=== PATIENT | female | born 1995 | race Caucasian/White ===

== ENCOUNTER → 2019-05-13 | Outpatient (CLI) | payer MEDICAID ==
[2019-05-14 15:53] LABS: FREE T4 (FREE THYROXINE) 0.78 NG/DL (0.70-1.48)
== END ==
LOC: LAB FS 15:17
PROVIDERS: ATTEND Family Medicine
DX: Z34.80 Encounter for supervision of other normal pregnancy, unspecified trimester (principal); R53.82 Chronic fatigue, unspecified
CPT/HCPCS: 36415; 82105; 82677; 84439; 84443; 84702; 86336

== ENCOUNTER → 2019-07-15 | Outpatient (CLI) | payer MEDICAID ==
[2019-07-15 10:37] LABS: WHITE BLOOD COUNT 9.8 10^3/uL (4.3-11.0)
[2019-07-15 10:38] LABS: BASOPHILS # (AUTO) 0.1 10^3/uL (0.0-0.1); BASOPHILS % (AUTO) 1 % (0-10); EOSINOPHILS # (AUTO) 0.2 10^3/uL (0.0-0.3); EOSINOPHILS % (AUTO) 2 % (0-10); HEMATOCRIT 30 % (35-52); HEMOGLOBIN 10.5 G/DL (11.5-16.0); LYMPHOCYTES # (AUTO) 1.4 X 10^3 (1.0-4.0); LYMPHOCYTES % (AUTO) 14 % (12-44); MEAN CORPUSCULAR HEMOGLOBIN 30 PG (25-34); MEAN CORPUSCULAR HGB CONC 35 G/DL (32-36); MEAN CORPUSCULAR VOLUME 86 FL (80-99); MEAN PLATELET VOLUME 12.6 FL (7.4-10.4); MONOCYTES # (AUTO) 0.5 X 10^3 (0.0-1.0); MONOCYTES % (AUTO) 5 % (0-12); NEUTROPHILS # (AUTO) 7.5 X 10^3 (1.8-7.8); NEUTROPHILS % (AUTO) 77 % (42-75); PLATELET COUNT 144 10^3/uL (130-400); RED CELL DISTRIBUTION WIDTH 13.5 % (10.0-14.5)
== END ==
LOC: LAB FS 09:39
PROVIDERS: ATTEND Family Medicine
DX: Z34.80 Encounter for supervision of other normal pregnancy, unspecified trimester (principal)
CPT/HCPCS: 36415; 82950; 85025; 86780

== ENCOUNTER → 2019-09-16 | Outpatient (CLI) | payer MEDICAID | LOC: LABNPT 15:40 | PROVIDERS: ATTEND Family Medicine | DX: Z34.83 Encounter for supervision of other normal pregnancy, third trimester (principal); Z3A.00 Weeks of gestation of pregnancy not specified | CPT/HCPCS: 87081 ==

== ENCOUNTER 2019-10-13 20:00 | Inpatient (IN) | payer MEDICAID ==
[~2019-10-13] VITALS: Ht 167 cm; Wt 118.4 kg
[2019-10-13] MEDS ORDERED: FAMOTIDINE 20MG/2ML IV (PEPCID) ONE (21:01)
[2019-10-13] MEDS ORDERED: METOCLOPRAMIDE INJ 10 MG/2 ML (REGLAN) ONE (21:01)
[2019-10-13] MEDS ORDERED: LACTATED RINGERS 1,000 ML IV ONE (21:01)
[2019-10-13] MEDS ORDERED: CITRIC ACID/SOB CIT (BICITRA) 30 ML UDC ONE (21:01)
[2019-10-13] MEDS ORDERED: ceFAZolin 2 GM IV Premixed 0 ML ONE (21:05)
[2019-10-13] MEDS ORDERED: D5 LR IV SOLUTION 1,000 ML IV ONE (21:18)
[2019-10-13 21:30] VITALS: BP 122/72
[2019-10-13] MEDS ORDERED: LACTATED RINGERS 1,000 ML IV SCH (21:30)
[2019-10-13] MEDS ORDERED: MISOPROSTOL 100 MCG (CYTOTEC) TAB PO ONE (21:30)
--- OUTSIDE RECORDS SUMMARY | 2019-10-13 21:30 | XMS REPORT | Continuity of Care Document ---
Author Organization Unknown Address Unknown Phone Unavailable Allergies Active Description Code Type Severity Reaction Onset Reported/Identified Relationship to Patient Clinical Status Yes No Known Drug Allergies [id number] Drug Allergy Unknown N/A 10/13/2019 Medications There is no data. Problems Date Dx Coded Attending Type Code Diagnosis Diagnosed By 07/16/2019 LUCY MAGAÑA MD, Ot Z34.80 ENCOUNTER FOR SUPRVSN OF NORMAL PREGNANC 08/05/2019 LUCY MAGAÑA MD Ot R53.82 CHRONIC FATIGUE, UNSPECIFIED 08/05/2019 LUCY MAGAÑA MD Ot Z34.80 ENCOUNTER FOR SUPRVSN OF NORMAL PREGNANC 08/05/2019 LUCY MAGAÑA MD, Ot R53.82 CHRONIC FATIGUE, UNSPECIFIED 08/05/2019 LUCY MAGAÑA MD Ot Z34.80 ENCOUNTER FOR SUPRVSN OF NORMAL PREGNANC 08/05/2019 LUCY MAGAÑA MD Ot Z34.80 ENCOUNTER FOR SUPRVSN OF NORMAL PREGNANC 08/19/2019 LUCY MAGAÑA MD Ot R53.82 CHRONIC FATIGUE, UNSPECIFIED 08/19/2019 LUCY MAGAÑA MD Ot Z34.80 ENCOUNTER FOR SUPRVSN OF NORMAL PREGNANC 08/19/2019 LUCY MAGAÑA MD Ot Z34.80 ENCOUNTER FOR SUPRVSN OF NORMAL PREGNANC 09/18/2019 LUCY MAGAÑA MD Ot Z34.83 ENCOUNTER FOR SUPRVSN OF NORMAL PREGNANC 09/18/2019 LUCY MAGAÑA MD Ot Z3A.00 WEEKS OF GESTATION OF NOT SPEC 09/24/2019 LUCY MAGAÑA MD Ot Z34.83 ENCOUNTER FOR SUPRVSN OF NORMAL PREGNANC 09/24/2019 LUCY MAGAÑA MD, Ot Z3A.00 WEEKS OF GESTATION OF NOT SPEC Procedures There is no data. Results Test Result Range HIV ANTIGEN/ANTIBODY - 03/11/19 14:42 HIV AG/AB, 4TH GEN NON-REACTIVE NON-TATIANA CTIVE CBC - 03/11/19 14:42 WHITE BLOOD CELL COUNT 7.9 Thousand/uL 3 .8-10.8 RED BLOOD CELL COUNT 4.57 Million/uL 3.8 0-5.10 HEMOGLOBIN 13.8 g/dL 11.7-15.5 HEMATOCRIT 39.5 % 35.0-45.0 MCV 86.4 fL 80.0-100.0 MCH 30.2 pg 27.0-33.0 MCHC 34.9 g/dL 32.0-36.0 RDW 13.0 % 11.0-15.0 PLATELET COUNT 215 Thousand/uL 140-400 MPV 12.7 fL 7.5-12.5 ABSOLUTE NEUTROPHILS 5570 cells/uL 1500- 7800 ABSOLUTE LYMPHOCYTES 1596 cells/uL 850-3 900 ABSOLUTE MONOCYTES 435 cells/uL 200-950 ABSOLUTE EOSINOPHILS 237 cells/uL 15-500 ABSOLUTE BASOPHILS 63 cells/uL 0-200 NEUTROPHILS 70.5 % NRG LYMPHOCYTES 20.2 % NRG MONOCYTES 5.5 % NRG EOSINOPHILS 3.0 % NRG BASOPHILS 0.8 % NRG SYPHILIS (RPR W/ REFLEX CONFIRMATION) - 03/11/19 14:42 RPR (DX) W/REFL TITER AND CONFIRMATORY TESTING NON-REACTIVE NON-REACTIVE HEP B SURFACE ANTIGEN - 03/11/19 14:42 HEPATITIS B SURFACE ANTIGEN NON-REACTIVE NON-REACTIVE RUBELLA IMMUNE STATUS - 03/11/19 14:42 RUBELLA ANTIBODY (IGG) 1.84 index NRG GC/CHLAMYDIA (SWAB OR URINE)-RAPID - 13:36 CHLAMYDIA TRACHOMATIS RNA, TMA NOT DETECTED NOT DETECTED NEISSERIA GONORRHOEAE RNA, TMA NOT DETECTED NOT DETECTED COMMENT NRG SUREPATH PAP RFX HPV mRNA E6/E7 - 13:36 CLINICAL INFORMATION: NRG LMP: NRG PREV. PAP: NRG PREV. BX: NRG SOURCE: Cervix NRG STATEMENT OF ADEQUACY: NRG INTERPRETATION/RESULT: NRG NUCLEAR MEDICINE OFFICER: NRG COMMENT NRG Streptococcus agalactiae detection by or ganism specific culture - 09/16/19 13:00 QUANTITY OF GROWTH . NRG Streptococcus agalactiae detection by organism specifi c culture [id number] NRG Encounters ACCT No. Visit Date/Time Discharge Status Pt. Type Provider Facility Loc./Unit Complaint [id number] 04/30/2019 11:00:00 04/30/2019 23:59: 59 CLS Outpatient LUCY MAGAÑA [facility] [id number] 04/07/2019 13:00:00 Document Registration [id number] 03/11/2019 13:00:00 Document Registration [id number] 09/16/2019 15:40:00 23:59:59 CLS Outpatient LUCY MAGAÑA MD [facility] LABNPT [id number] 07/15/2019 09:39:00 23:59:59 CLS Outpatient LUCY MAGAÑA MD [facility] LAB FS SUPERVISION OF OTHER NO RMAL [id number] 05/13/2019 15:17:00 23:59:59 CLS Outpatient LUCY MAGAÑA MD [facility] LAB FS R53.82 Z34.80 [id number] 10/13/2019 20:37:[address] Inpatient LUCY MAGAÑA MD [facility] LDRP INDUCTION
[2019-10-13] MEDS: D5 LR IV SOLUTION 1,000 ML IV SCH (21:34)
[2019-10-13 21:40] LABS: BASOPHILS % (AUTO) 0 % (0-10); EOSINOPHILS # (AUTO) 0.2 10^3/uL (0.0-0.3); EOSINOPHILS % (AUTO) 2 % (0-10); HEMATOCRIT 33 % (35-52); HEMOGLOBIN 11.8 G/DL (11.5-16.0); LYMPHOCYTES # (AUTO) 1.4 X 10^3 (1.0-4.0); LYMPHOCYTES % (AUTO) 11 % (12-44); MEAN CORPUSCULAR HEMOGLOBIN 31 PG (25-34); MEAN CORPUSCULAR HGB CONC 36 G/DL (32-36); MEAN CORPUSCULAR VOLUME 86 FL (80-99); MONOCYTES # (AUTO) 0.7 X 10^3 (0.0-1.0); MONOCYTES % (AUTO) 6 % (0-12); NEUTROPHILS # (AUTO) 9.6 X 10^3 (1.8-7.8); NEUTROPHILS % (AUTO) 80 % (42-75); PLATELET COUNT 146 10^3/uL (130-400); RED CELL DISTRIBUTION WIDTH 13.9 % (10.0-14.5)
[2019-10-13] MEDS: MISOPROSTOL 100 MCG (CYTOTEC) TAB PV SCH (22:24)
[2019-10-13 22:30] VITALS: BP 118/67
[2019-10-13 23:00] VITALS: BP 105/58
[2019-10-13 23:30] VITALS: BP 120/66
[2019-10-13 23:39] VITALS: BP 122/72
[2019-10-14] VITALS (69 sets, daily range): BP systolic 89–157; BP diastolic 48–80
[2019-10-14] MEDS ORDERED: MISOPROSTOL 100 MCG (CYTOTEC) TAB PO SCH (01:30)
[2019-10-14] MEDS: MISOPROSTOL 100 MCG (CYTOTEC) TAB PV SCH ×2 (02:34→14:49)
[2019-10-14] MEDS: D5 LR IV SOLUTION 1,000 ML IV SCH ×2 (05:46→13:04)
[2019-10-14] MEDS ORDERED: fentaNYL INJECTION 100 MCG/2 ML AMP IVP PRN ×2 (06:00→11:45)
[2019-10-14] MEDS ORDERED: OXYTOCIN PRE-MIX DRIP 500 ML IV ONE (06:22)
[2019-10-14] MEDS ORDERED: OXYTOCIN PRE-MIX DRIP 500 ML IV SCH ×2 (06:26→17:30)
[2019-10-14] MEDS ORDERED: PREN-8 PO (06:42)
--- NOTE | 2019-10-14 11:06 | NUR ---
Returned text to Addendum: 10/14/19 at 1108 by JADEN GEORGE RN Dr Jameson. Pt rates pain 6. Breathing and moving frequently with contractions. Difficult to monitor due to pt's size and frequent movement.
[2019-10-14] MEDS ORDERED: fentaNYL 2 mcg/ml BUPIVA 0.125 100 ML ONE (13:17)
[2019-10-14] MEDS ORDERED: fentaNYL INJECTION 100 MCG/2 ML AMP ONE (13:36)
[2019-10-14] MEDS ORDERED: BUPIVACAINE 0.25% 30 ML (SENSORCAINE) VIAL ONE (13:36)
[2019-10-14] MEDS ORDERED: fentaNYL 2 mcg/ml BUPIVA 0.125 100 ML IV SCH (14:06)
[2019-10-14] MEDS ORDERED: LACTATED RINGERS 1,000 ML IV ONE (14:06)
[2019-10-14] MEDS ORDERED: diphenhydrAMINE 50 MG/ML INJ (BENADRYL) IV PRN (14:15)
[2019-10-14] MEDS ORDERED: EPIDURAL (fentaNYL 2 MCG/ML BUPIVA 0.125%)100 ML BAG EPI SCH (14:15)
[2019-10-14] MEDS ORDERED: NALOXONE 0.4 MG/ML 1 ML (NARCAN) VIAL IV PRN (14:15)
[2019-10-14] MEDS ORDERED: ONDANSETRON 4 MG/2 ML (SDV) Z0FRAN IV PRN (14:15)
[2019-10-14] MEDS ORDERED: CATHETER FLUSH 10 ML SYR IV PRN (14:15)
--- NOTE | 2019-10-14 17:18 | NUR ---
Spontaneous vaginal delivery of placenta with cord attached. fundal massage per dr delgadillo with minimal bleeding noted. perineum examined per dr delgadillo, no repairs needed. plan of care reviewed with pt regarding recovery period 1725 epidural infusion turned off at this time. pt assisted to sf position. 1726 ffu/0 with lt-mod rubra noted, no clots expressed. 1730 epidural catheter dc'd with tip intact
--- NOTE | 2019-10-14 17:26 | NUR ---
VSS. ffu/0 with lt-mod rubra noted, no clots expressed. 1747 vss ffu/0 with mod rubra, 2 small 1cm clots expressed. vss 1802 vss . ffu/0 with lt-mod rubra noted, no clots expressed. pericare, pad changed and underwear on. Gown changed.
--- NOTE | 2019-10-14 17:27 | History & Physical-OB ---
OB - Chief Complaint & HPI Date/Time Date of Admission: Date of Admission: Oct 13, 2019 at 20:37 Date seen by a Provider: Oct 14, 2019 Time Seen by a Provider: 17:00 Chief Complaint/History OB-Reason for Admission/Chief: Induction of Labor Hx : 2 Hx Para: 1 Gestational Age in Weeks: 40 Gestational Age in Days: 0 Indication for induction: post dates Admission Nurse Assessment Rev: Yes Allergies and Home Medications Allergies Coded Allergies: No Known Drug Allergies (Unverified , 10/13/19) Patient Home Medication List Home Medication List Reviewed: Yes OB - History Hx of Present Care: Yes Ultrasounds: Normal mid trimester US Obstetrical Complications: None Medical Complications: None Delivery History Adverse Rxn to Tranfusion: No Patient Past Medical History previously healthy Social History/Family History Recent Infectious Disease Expo: No Alcohol Use: Denies Use Recreational Drug Use: No OB - Admission Exam Physical Exam Vitals: Vital Signs 10/14/19 10/14/19 10/14/19 15:45 16:15 16:30 Temp 36.4 Pulse 70 Resp 18 B/P (MAP) 111/58 (75) Pulse Ox 98 O2 Delivery Room Air HEENT: NCAT Heart: Rhythm Normal Lungs: Clear Abdomen: Gravid Extremities: Normal Reflexes: Normal Cervical Dilatation: 10cm Effacement: 100% Station: +1 Membranes: Ruptured Amniotic Fluid: Clear Heart Rate: 130's Accelerations: Accelerations Present Decelerations: No Decelerations Short Term Variability: Present Loan Administrator Variability: Average (6-25) Contractions on Admission: None Labs Laboratory Tests Test 10/13/19 21:25 Range/Units White Blood Count 12.0 H 4.3-11.0 10^3/uL Red Blood Count 3.87 L 4.35-5.85 10^6/uL Hemoglobin 11.8 11.5-16.0 G/DL Hematocrit 33 L 35-52 % Mean Corpuscular Volume 86 80-99 FL Mean Corpuscular Hemoglobin 31 25-34 PG Mean Corpuscular Hemoglobin Concent 36 32-36 G/DL Red Cell Distribution Width 13.9 10.0-14.5 % Platelet Count 146 130-400 10^3/uL Mean Platelet Volume 7.4-10.4 FL Neutrophils (%) (Auto) 80 H 42-75 % Lymphocytes (%) (Auto) 11 L 12-44 % Monocytes (%) (Auto) 6 0-12 % Eosinophils (%) (Auto) 2 0-10 % Basophils (%) (Auto) 0 0-10 % Neutrophils # (Auto) 9.6 H 1.8-7.8 X 10^3 Lymphocytes # (Auto) 1.4 1.0-4.0 X 10^3 Monocytes # (Auto) 0.7 0.0-1.0 X 10^3 Eosinophils # (Auto) 0.2 0.0-0.3 10^3/uL Basophils # (Auto) 0.0 0.0-0.1 10^3/uL OB - Assessment/Plan/Diagnosis Assessment Assessment: induction of labor Admission Dx Induction of labor at 40 weeks. Admission Status: Inpatient Order (span 2 midnights) Reason for Inpatient Admission: Induction of labor. Plan Induction Method: per Pitocin Protocol Other Plan Cytotec last night times 2 vaginally. Pitocin today with AROM. Will push. Comfortable with epidural. GBS negative. LUCY MAGAÑA MD Oct 14, 2019 17:27
[2019-10-14] MEDS ORDERED: MEASLES,MUMPS,RUBELLA 1 EA INJ SQ ONE (17:30)
[2019-10-14] MEDS ORDERED: TETANUS,DIPTH,PERTUSS P/F (BOOSTRIX) 0.5 ML VIAL IM ONE (17:30)
[2019-10-14] MEDS ORDERED: BENZOCAINE/MENTHOL (DERMOPLAST) 60 ML CAN TP PRN (17:30)
[2019-10-14] MEDS ORDERED: WITCH HAZEL(TUCKS) 40 EA JAR TOP PRN (17:30)
--- NOTE | 2019-10-14 17:30 | OB Labor & Delivery Record ---
Vag Delivery Note Vag Delivery Note Date of Delivery: 10/14/19 Preoperative Diagnosis: Marcia Torrez is a (24 /Para 2/1 , Gestational Age (40 wks)with [0 days] Postoperative Diagnosis: Same Surgeon: LUCY MAGAÑA [employer]: [none] Anesthesia: [epidural] Delivery Type: [] Findings: [] Viable [female] , apgars [7/9], weight [8 pounds 0 ounces] Lacerations: Intact placenta with 3 vessel cord. Loose nuchal cord times one with true knot loose. Estimated Blood Loss: [200] ml Complications: None Condition: Stable Description of Procedure: The patient is a 24 year old female who presented [for induction]. She was admitted and informed consent was obtained. Her labor course was remarkable for [nothing] She progressed to complete dilatation and began to push. She was then set up for delivery. The infant's head was delivered atraumatically in the [OA] position. The shoulders and remainder of the 's body were then delivered without difficulty. Upon delivery, the head was held below the level of the perineum and the mouth and nares were bulb suctioned. The cord was doubly clamped and cut after 60 seconds on maternal abdomen by father of baby. An intact placenta with 3-vessel cord delivered via Trey and there was found to be minimal bleeding.~ Vigorous fundal massage was performed and the fundus was found to be firm. IV oxytocin was given. Examination of the vagina and perineum revealed no lacerations.. Following the repair, sponge, instrument and needle counts were correct. Mom and baby were both in stable condition in the labor suite. Vitals - Labs Vital Signs - I&O Vital Signs Date Time Temp Pulse Resp B/P (MAP) Pulse Ox O2 Delivery O2 Flow Rate FiO2 10/14/19 16:30 70 18 111/58 (75) Room Air 10/14/19 16:15 36.4 67 18 124/66 (85) Room Air 10/14/19 16:00 18 110/71 (84) Room Air 10/14/19 15:45 70 18 108/62 (77) 98 Room Air 10/14/19 15:30 79 18 92/53 (66) 98 Room Air 10/14/19 15:15 79 18 92/53 (66) 98 Room Air 10/14/19 15:02 74 18 91/50 (64) 97 Room Air 10/14/19 15:00 Room Air 10/14/19 14:45 74 18 116/52 (73) 100 Room Air 10/14/19 14:30 71 18 116/57 (76) 98 Room Air 10/14/19 14:27 71 18 118/60 (79) 98 Room Air 10/14/19 14:24 73 18 116/59 (78) 98 Room Air 10/14/19 14:21 74 18 119/58 (78) 98 Room Air 10/14/19 14:18 72 18 119/56 (77) 98 Room Air 10/14/19 14:15 73 18 116/60 (78) 98 Room Air 10/14/19 14:12 72 18 120/63 (82) 98 Room Air 10/14/19 14:09 36.4 77 18 117/60 (79) 99 Room Air 10/14/19 14:06 77 18 112/57 (75) 99 Room Air 10/14/19 14:03 80 18 125/64 (84) 100 Room Air 10/14/19 14:00 80 18 126/63 (84) 100 Room Air 10/14/19 13:55 75 18 119/60 (79) 100 Room Air 10/14/19 13:50 75 18 157/75 (102) 100 Room Air 10/14/19 13:45 78 18 132/64 (86) 100 Room Air 10/14/19 13:30 73 18 123/70 (87) Room Air 10/14/19 13:15 63 18 135/76 (95) Room Air 10/14/19 13:00 36.6 Room Air 10/14/19 12:45 69 18 135/71 (92) Room Air 10/14/19 11:45 74 130/67 (88) Room Air 10/14/19 11:30 65 124/70 (88) Room Air 10/14/19 11:15 66 126/66 (86) Room Air 10/14/19 11:00 67 20 141/78 (99) Room Air 10/14/19 10:30 72 20 118/58 (78) Room Air 10/14/19 10:15 36.7 72 138/80 (99) 10/14/19 10:00 76 123/72 (89) Room Air 10/14/19 09:45 76 123/71 (88) Room Air 10/14/19 09:30 69 121/67 (85) Room Air 10/14/19 09:15 74 18 108/58 (75) Room Air 10/14/19 09:00 74 18 100/56 (71) Room Air 10/14/19 08:45 68 18 127/67 (87) Room Air 10/14/19 08:30 94 18 144/72 (96) Room Air 10/14/19 08:15 72 18 104/59 (74) Room Air 10/14/19 08:00 68 18 104/56 (72) Room Air 10/14/19 07:45 72 18 104/59 (74) Room Air 10/14/19 07:30 36.2 80 18 108/61 (77) Room Air 10/14/19 07:15 82 18 116/70 (85) Room Air 10/14/19 07:00 81 18 125/73 (90) Room Air 10/14/19 06:45 91 18 127/74 (91) Room Air 10/14/19 06:30 75 18 109/61 (77) Room Air 10/14/19 06:00 68 18 101/55 (70) Room Air 10/14/19 05:30 71 18 102/56 (71) Room Air 10/14/19 04:30 83 18 110/58 (75) Room Air 10/14/19 04:00 76 18 111/58 (75) Room Air 10/14/19 03:30 73 18 125/68 (87) Room Air 10/14/19 03:00 81 18 94/52 (66) Room Air 10/14/19 02:30 36.5 83 18 104/57 (73) Room Air 10/14/19 02:00 81 18 122/70 (87) Room Air 10/14/19 01:30 86 18 123/68 (86) Room Air 10/14/19 01:00 81 18 130/71 (90) Room Air 10/14/19 00:30 89 18 102/56 (71) Room Air 10/14/19 00:00 90 18 117/72 (87) Room Air 10/13/19 23:39 36.4 106 18 97 Room Air 10/13/19 23:30 86 18 120/66 (84) Room Air 10/13/19 23:00 101 18 105/58 (74) Room Air 10/13/19 22:30 97 18 118/67 (84) 97 Room Air 10/13/19 21:30 36.4 106 18 122/72 (89) 97 Room Air Labs Laboratory Tests 10/13/19 21:25: White Blood Count 12.0H, Red Blood Count 3.87L, Hemoglobin 11.8, Hematocrit 33L, Mean Corpuscular Volume 86, Mean Corpuscular Hemoglobin 31, Mean Corpuscular Hemoglobin Concent 36, Red Cell Distribution Width 13.9, Platelet Count 146, Mean Platelet Volume , Neutrophils (%) (Auto) 80H, Lymphocytes (%) (Auto) 11L, Monocytes (%) (Auto) 6, Eosinophils (%) (Auto) 2, Basophils (%) (Auto) 0, Neutrophils # (Auto) 9.6H, Lymphocytes # (Auto) 1.4, Monocytes # (Auto) 0.7, Eosinophils # (Auto) 0.2, Basophils # (Auto) 0.0 LUCY MAGAÑA MD Oct 14, 2019 17:30
[2019-10-14] MEDS: IBUPROFEN 600 MG (MOTRIN) TAB PO SCH (18:12)
--- NOTE | 2019-10-14 18:17 | NUR ---
pt eating dinner tray, denies needs.
--- NOTE | 2019-10-14 19:45 | NUR ---
pt sitting up in bed. Assessment completed. Pt still unable to move right lower extremity. Will wait to move to room. ff 2 below. light/moderate rubra. Pt denies any needs at this time. Will continue to monitor.
[2019-10-14] MEDS: DOCUSATE SODIUM 100 MG (COLACE) CAP PO SCH (20:56)
[2019-10-14] MEDS: ACETAMINOPHEN 500 MG TAB (TYLENOL) PO SCH (20:56)
--- NOTE | 2019-10-14 21:17 | NUR ---
pt assisted to the w'c and taken to the bathroom. Positive void. light/moderate rubra. pericare completed. pad changed. pt tx down to 309. pt orientated to the room. info papers discussed. pt denies any concerns at this time. will continue to monitor.
[2019-10-14] MEDS ORDERED: CATHETER FLUSH 10 ML SYR IV SCH (22:00)
[2019-10-15] MEDS: IBUPROFEN 600 MG (MOTRIN) TAB PO SCH ×3 (00:06→13:56)
[2019-10-15 00:13] VITALS: BP 96/51
[2019-10-15] MEDS: ACETAMINOPHEN 500 MG TAB (TYLENOL) PO SCH ×2 (04:01→13:55)
[2019-10-15 04:06] VITALS: BP 116/72
[2019-10-15 05:31] LABS: BASOPHILS % (AUTO) 0 % (0-10); EOSINOPHILS # (AUTO) 0.2 10^3/uL (0.0-0.3); EOSINOPHILS % (AUTO) 2 % (0-10); HEMATOCRIT 29 % (35-52); HEMOGLOBIN 9.9 G/DL (11.5-16.0); LYMPHOCYTES # (AUTO) 1.5 X 10^3 (1.0-4.0); LYMPHOCYTES % (AUTO) 13 % (12-44); MEAN CORPUSCULAR HEMOGLOBIN 30 PG (25-34); MEAN CORPUSCULAR HGB CONC 35 G/DL (32-36); MEAN CORPUSCULAR VOLUME 86 FL (80-99); MEAN PLATELET VOLUME 12.6 FL (7.4-10.4); MONOCYTES # (AUTO) 0.8 X 10^3 (0.0-1.0); MONOCYTES % (AUTO) 7 % (0-12); NEUTROPHILS # (AUTO) 8.5 X 10^3 (1.8-7.8); NEUTROPHILS % (AUTO) 78 % (42-75); PLATELET COUNT 114 10^3/uL (130-400); RED CELL DISTRIBUTION WIDTH 14.1 % (10.0-14.5); WHITE BLOOD COUNT 10.9 10^3/uL (4.3-11.0)
[2019-10-15 08:57] VITALS: BP 95/60
[2019-10-15] MEDS: DOCUSATE SODIUM 100 MG (COLACE) CAP PO SCH (11:00)
[2019-10-15 13:57] VITALS: BP 122/88
--- NOTE | 2019-10-15 15:51 | Anesthesia-Regional Post-Op ---
Regional Patient Condition Mental Status: Alert, Oriented x3 Circulation: Same as Pre-Op Headache: Absent Sensation: Full Recovery Motor Block: Absent Post Op Complications Complications None Follow Up Care/Instructions Patient Instructions None needed. Anesthesia/Patient Condition Patient is doing well, no complaints, stable vital signs, no apparent adverse anesthesia problems. SUDARSHAN YUN DO Oct 15, 2019 15:51
[2019-10-15] MEDS ORDERED: IBUP-844 PO (16:07)
--- NOTE | 2019-10-15 16:08 | Discharge Summary ---
Discharge Inst-[facility] Reconcile Patient Problems Problems Reviewed?: Yes Depart Medications New, Converted or Re-Newed RX: Transmitted to Pharmacy Follow Up/Instructions Goal/Follow Up: [address] Magaña Activity Activity: Activity as Tolerated Driving Instructions: You May Drive NO SMOKING: NO SMOKING Nothing Inside Vagina: No Douching, No [place], No Tampons Diet Discharge Diet: No Restrictions Symptoms to Report to : Fever Over 101 Degrees F, Vaginal Bleeding Increase For Any Problems or Questions: Contact Your Physician LUCY MAGAÑA MD Oct 15, 2019 16:08
--- NOTE | 2019-10-15 16:10 | Discharge Summary ---
Diagnosis/Chief Complaint Date of Admission Oct 13, 2019 at 20:37 Date of Discharge October 15, 2019 Admission Diagnosis Admission Diagnosis Induction of labor at 40 weeks Discharge Diagnosis Vaginal delivery at 40 weeks. Problems/Diagnosis: (1) Elective induction of labor planned Discharge Summary-OBS Procedures None. Discharge Physical Examination Allergies: Coded Allergies: No Known Drug Allergies (Unverified , 10/13/19) Vitals & I&Os Intake and Output 10/15/19 00:00 Intake Total 3600 ml Balance 3600 ml Vital Sign - Last 12Hours Date Time Temp Pulse Resp B/P (MAP) Pulse Ox O2 Delivery O2 Flow Rate FiO2 10/15/19 13:57 101 18 122/88 (99) 99 Room Air 10/15/19 08:57 36.3 General Appearance: Alert, Oriented X3 HEENT: Atraumatic Respiratory: Clear to Auscultation Cardiovascular: Regular Rate Extremities: No Edema Skin: No Rashes Neuro: Normal Gait Psych/Mental Status: Mental Status NL Hospital Course Was the Problem List Reviewed?: Yes Uneventful vaginal delivery and course. Labs Laboratory Tests 10/15/19 05:17: White Blood Count 10.9, Red Blood Count 3.31L, Hemoglobin 9.9L, Hematocrit 29L, Mean Corpuscular Volume 86, Mean Corpuscular Hemoglobin 30, Mean Corpuscular Hemoglobin Concent 35, Red Cell Distribution Width 14.1, Platelet Count 114L, Mean Platelet Volume 12.6H, Neutrophils (%) (Auto) 78H, Lymphocytes (%) (Auto) 13, Monocytes (%) (Auto) 7, Eosinophils (%) (Auto) 2, Basophils (%) (Auto) 0, Neutrophils # (Auto) 8.5H, Lymphocytes # (Auto) 1.5, Monocytes # (Auto) 0.8, Eosinophils # (Auto) 0.2, Basophils # (Auto) 0.0 Discharge Instructions to patient/family Please see electronic discharge instructions given to patient. Discharge Medications Reviewed and agree with Discharge Medication list on patient's Discharge Instruction sheet Clinical Quality Measures DVT/VTE Risk/Contraindication: Risk Factor Score Per Nursin RFS Level Per Nursing on Admit: 3=High LUCY MAGAÑA MD Oct 15, 2019 16:10
--- NOTE | 2019-10-15 18:50 | NUR ---
Discharge instuctions explained, signed and copy to patient. pt verbalized understanding and denied questions.
--- NOTE | 2019-10-15 19:25 | NUR ---
Pt ambulated to t car. Pt discharged home. No distress noted. Will follow up with in office.
== END 2019-10-15 19:25 | disposition home or self-care (01) | DRG 807 ==
LOC: LDRP 20:37
PROVIDERS: ADMIT Family Medicine; ATTEND Family Medicine
PROC: 10E0XZZ Delivery of Products of Conception, External Approach (ICD-10-PCS; principal; 2019-10-14)
DX: O80 Encounter for full-term uncomplicated delivery (principal); Z37.0 Single live birth; Z3A.39 39 weeks gestation of pregnancy
CPT/HCPCS: 36415; 85025; 86850; 86900; 86901

== ENCOUNTER → 2020-09-09 | Outpatient (CLI) | payer MEDICAID ==
[~2020-09-09] MED LIST: IBUP-844 PO; PREN-8 PO
== END ==
LOC: LABNPT 14:53
PROVIDERS: ATTEND Family Medicine
DX: N89.8 Other specified noninflammatory disorders of vagina (principal)
CPT/HCPCS: 87210; 87491; 87591